=== PATIENT | female | born 1995 | race Caucasian/White ===

== ENCOUNTER 2016-05-11 22:53 | Outpatient (CLI) | payer BC, MEDICAID ==
[~2016-05-11] VITALS: Ht 149.9 cm; Wt 113.6 kg
[~2016-05-11 22:53] MED LIST: ARMOUR THYROID60 MG PO; IRON TABLETS325 MG; NORCO 325 MG-51 TAB PO; PRENATAL1 TA7 PO; SYNTHROID0.075 MG/T PO; TRI-SPRINTEC 281 TAB PO
[2016-05-11 23:14] VITALS: BP 109/62; PULSE 108; TEMP 98
[2016-05-11 23:50] VITALS: BP 101/64; PULSE 114
== END 2016-05-12 00:10 | disposition home or self-care (01) ==
LOC: LDRO 22:53
DX: O47.03 False labor before 37 completed weeks of gestation, third trimester (principal); O36.8130 Decreased fetal movements, third trimester, not applicable or unspecified; Z87.891 Personal history of nicotine dependence; Z3A.36 36 weeks gestation of pregnancy